=== PATIENT | male | born 1995 | race Caucasian/White ===

== ENCOUNTER 2019-02-17 11:45 | Observation (INO) | payer BC ==
[2019-02-17] MEDS ORDERED: Sodium Chloride 0.9% 1,000 ML IV ONE (12:03)
[2019-02-17 13:02] LABS: CHLORIDE,CL 95 mmol/L (98-115); SODIUM,NA 135 mmol/L (136-145)
--- NOTE | 2019-02-17 13:08 | CR ---
[id number] RAD/RAD Chest PA And Lateral EXAM: FRONTAL AND LATERAL CHEST INDICATION: Fever and shortness of breath. COMPARISON: None. DISCUSSION: Mild hypoinflation. Mild bilateral interstitial opacities are suggestive of atypical infection. Consider follow-up imaging in 4-6 weeks to further exclude other underlying pathology. Normal heart size. IMPRESSION: 1. Mild diffuse bilateral interstitial infiltrates Triston Grajeda MD 02/17/19 [id number] Thank you for allowing us to participate in the care of your patient.
[2019-02-17] MEDS: Acetaminophen 325 MG Tab PO PRN (14:01)
[2019-02-17] MEDS: Sodium Chloride 0.9% 1,000 ML IV SCH (14:01)
[2019-02-17] MEDS ORDERED: Iopamidol 755 Mg/ML 100 ML Bottle IV ONE (14:06)
[2019-02-17] MEDS ORDERED: Sodium Chloride 0.9% 50 ML IV SCH (14:15)
--- NOTE | 2019-02-17 15:35 | CT ---
[id number] CT/CT Chest W IV Exam: CT Chest W IV Clinical Data: BILATERAL INTERSTITIAL INFILTRATES INHALATION EXPOSURE COMPARISON: CORRELATION IS MADE WITH TODAY'S PLAIN FILM FINDINGS: Interstitial infiltrates are seen bilaterally mostly at the lung bases There is no mediastinal mass or adenopathy The great vessels are intact There are subcentimeter lymph nodes in the mediastinum IMPRESSION: DOCUMENTATION OF ABNORMAL INTERSTITIAL PATTERN Lei Angel MD 02/17/19 1536 Thank you for allowing us to participate in the care of your patient.
[2019-02-17] MEDS ORDERED: cefTRIAXone 1 GM Vial IVPUSH SCH (17:00)
[2019-02-17] MEDS ORDERED: Azithromycin 500 MG in Sodium Chloride 0.9% 250 ML IV SCH (18:00)
[2019-02-17] MEDS: B.Bifidum/B.Longum/L.Acidophilus/L.Rhamnosus (Probiotic) Cap PO SCH (20:44)
[2019-02-17] MEDS: Vancomycin 1 GM SDV PO SCH (21:26)
[2019-02-18] MEDS: Sodium Chloride 0.9% 1,000 ML IV SCH ×2 (00:34→08:52)
[2019-02-18] MEDS: Vancomycin 1 GM SDV PO SCH ×2 (03:07→09:51)
[2019-02-18] MEDS: Acetaminophen 325 MG Tab PO PRN (06:32)
[2019-02-18] MEDS: B.Bifidum/B.Longum/L.Acidophilus/L.Rhamnosus (Probiotic) Cap PO SCH (09:50)
--- NOTE | 2019-02-18 13:55 | DISCH ---
DISCHARGE DIAGNOSIS: 1. Clostridium difficile infection. 2. Acute febrile illness/dehydration/interstitial infiltrate. BRIEF HISTORY AND HOSPITAL SUMMARY: This is a 23-year-old male patient who was initially seen in the outpatient setting at the [facility] with complaints of breathing problems. He did have a followup later in the week with an exacerbation of the symptoms. Due to the progressive worsening of his situation, he was admitted to the hospital to observation. His initial symptoms started with feeling ill a week prior to his clinical visit. He noted nausea, vomiting, and shortness of breath. He does admit to vaping THC/CBD. He was vaping several times a day and smoking approximately one-half package of cigarettes. He has not vaped or smoked since last Wednesday. He has no prior history of any lung disease. He states that he was not in contact with anyone that was ill or sick. Over the course of his hospitalization, he was initially treated with IV fluids, 1 g of Rocephin and 500 mg of azithromycin due to his x- ray report/CT report of interstitial infiltrates. A stool specimen had also been obtained noting the positive C diff. He denies any previous antibiotics. 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 With the positive C. Diff the Rocephin was discontinued and he was started on vancomycin 125 mg orally q.i.d. He was also started on a probiotic. On the morning of discharge, he reports that he feels 75% improved. His respiratory status has improved significantly and he notes that he is coughing less. He has had no significant fever. He has had a low- grade fever during his hospitalization. He has refused Tylenol. He has been placed on a clear liquid diet. He is tolerating the clear liquids without nausea or vomiting. He reports this morning at approximately 10 a.m. that his last loose stool was at midnight last night. The patient requests discharge from hospital and would like to follow up with outpatient medications. No complications noted. MEDICATIONS: The patient will be sent home on vancomycin 125 mg q.i.d. for an additional 9 days. He will continue his probiotics. His azithromycin will be discontinued. He may use the antiemetic as needed and Tylenol as needed. LABS AND DIAGNOSTICS: A chest x-ray and CT scan were obtained noting interstitial infiltrates. Lab work was obtained during the course of his hospitalization. Noted an initial white count of 12.38. White count on day of discharge is 10.18. He does have a slight left shift with neutrophils at 88.4 yesterday and 84.5 today. A UA was also obtained on admission noting moderate amount of mucus, wbc's 5-10. Blood cultures were obtained. Those results are pending. The patient was unable to produce an adequate sputum culture for evaluation. Stool culture positive for C. diff. No consults were obtained. PHYSICAL EXAMINATION: VITAL SIGNS: Today, 110/62, 98, 78, and 20. He has had a low-grade temp of 99.7 to 100. Oxygen saturation was 97% on 2 L of oxygen. After removal of oxygen, he was at 93% on room air. HEENT: Normal. RESPIRATORY: Lung sounds are clear to auscultation throughout all lung borden. He does have an intermittent congested cough. No respiratory distress. No wheezing, rhonchi, or rales. CARDIOVASCULAR: Heart rate and rhythm are regular. S1, S2 without murmur. ABDOMEN: Soft, nontender, bowel sounds are present. He has no guarding or rebound tenderness to palpation. MUSCULOSKELETAL: No lower extremity edema. No changes of range of motion. SKIN: Warm and dry to touch. DISPOSITION: The patient will be discharged to his home setting. He will continue the vancomycin 125 mg QID oral for 9 days. He is advised to continue the probiotics. His azithromycin will be discontinued. He will continue to refrain from vaping and smoking. He was advised to use his incentive spirometer hourly while awake. Tylenol for comfort or low-grade fever. OTC cough medication PRN. He will be following up in the clinical setting for reevaluation on Wednesday. Dr. Lianet Patrick was consulted in this case and agrees with the plan of care/DC of the Zithromax. /[id number]/MODL MTDD
== END 2019-02-18 12:40 | disposition home or self-care (01) ==
LOC: KA.MS 11:45
PROVIDERS: ADMIT Nurse Practitioner Family; ATTEND Family Medicine
DX: A04.72 Enterocolitis due to Clostridium difficile, not specified as recurrent (principal); R91.8 Other nonspecific abnormal finding of lung field; R50.9 Fever, unspecified; E86.0 Dehydration; F41.9 Anxiety disorder, unspecified; F32.9 Major depressive disorder, single episode, unspecified; F17.210 Nicotine dependence, cigarettes, uncomplicated; F17.290 Nicotine dependence, other tobacco product, uncomplicated; Z79.899 Other long term (current) drug therapy; Z88.1 Allergy status to other antibiotic agents
CPT/HCPCS: 36415; 71046; 71260; 80053; 81001; 85025; 87040; 87045; 87046; 87324; 87449; 87899; 96361; 96365; 96375; A9270-GY; G0378; G0379; J0456; J0696; J3370; J7030; J7050; Q9967

== ENCOUNTER 2019-05-26 21:38 | Emergency (ER) | payer BC, OTHER ==
[2019-05-26] MEDS ORDERED: Ketorolac 30 MG/ML SDV IVPUSH ONE (21:59)
[2019-05-26] MEDS ORDERED: Sodium Chloride 0.9% 1,000 ML IV ONE (21:59)
[2019-05-26] MEDS ORDERED: diphenhydrAMINE 50 MG/ML SDV IVPUSH ONE (21:59)
[2019-05-26] MEDS ORDERED: Ondansetron 4 MG/2 ML SDV IVPUSH ONE (21:59)
--- NOTE | 2019-05-26 22:07 | EDM.PDOC ---
ED HPI GENERAL MEDICAL PROBLEM - General Chief Complaint: General Stated Complaint: VERY BAD HEADACHE Time Seen by Provider: 05/26/19 21:46 Source of Information: Reports: Patient, Family (mom) History Limitations: Reports: No Limitations - History of Present Illness INITIAL COMMENTS - FREE TEXT/NARRATIVE: Patient presents with bad headache that started 7 days ago. No injury or trauma. He denies visual change, balance problem, vomiting, ear pain or ringing , hearing loss. Yesterday he went to [facility] in [place] and was given a toradol injection which took the pain away for about 16 hours but now it is back again about as strong. He says it was 10 in [place] and was 10 again this evening but now sitting in the dimly lit ER room it is about 7. He denies any migraine diagnosis or history of bad headaches. Head Pain Score (Numeric/FACES): 7 - Related Data Allergies Allergy/AdvReac Type Severity Reaction Status Date / Time amoxicillin Allergy Rash Verified 05/26/19 21:53 Home Meds: Home Meds ondansetron HCL [Ondansetron] 4 mg PO Q6H PRN 02/17/19 [History] Acetaminophen [Tylenol] 650 mg PO Q4H PRN tablet 02/18/19 [Rx] Vancomycin 125 mg PO Q6H 9 Days #36 sdv 02/18/19 [Rx] Past Medical History Psychiatric History: Reports: ADD, ADHD, Anxiety, Depression, Learning Disability, Psych Hospitalization(s), Suicide Attempt - Infectious Disease History Infectious Disease History: Reports: Chicken Pox, Shingles Social & Family History - Family History Family Medical History: Noncontributory - Caffeine Use Caffeine Use: Reports: Soda ED ROS GENERAL - Review of Systems Review Of Systems: See Below Constitutional: Denies: Fever, Chills, Malaise, Weakness HEENT: Denies: Dental Pain, Ear Discharge, Ear Pain, Eye Pain, Throat Pain, Vision Change Respiratory: Denies: Shortness of Breath, Cough Cardiovascular: Denies: Chest Pain, Lightheadedness, Syncope GI/Abdominal: Denies: Abdominal Pain, Diarrhea, Decreased Appetite, Vomiting : Reports: No Symptoms Musculoskeletal: Denies: Neck Pain, Shoulder Pain, Arm Pain, Back Pain Skin: Denies: Cyanosis, Jaundice, Mottled, Pallor, Diaphoresis Neurological: Reports: Headache. Denies: Confusion, Dizziness, Numbness, Seizure, Syncope, Tingling, Tremors, Trouble Speaking, Difficulty Walking Psychiatric: Denies: Agitation, Anxiety, Confusion ED EXAM, GENERAL - Physical Exam Exam: See Below Exam Limited By: No Limitations General Appearance: Alert, WD/WN, No Apparent Distress Eye Exam: Bilateral Eye: EOMI (full visual bodren intact), Normal Inspection, PERRL Ears: Normal External Exam, Normal Canal, Hearing Grossly Normal, Normal TMs Nose: Normal Inspection, No Blood Throat/Mouth: Normal Inspection, Normal Lips, Normal Oropharynx, Normal Voice, No Airway Compromise Head: Atraumatic, Normocephalic Neck: Normal Inspection, Supple, Non-Tender, Full Range of Motion Respiratory/Chest: No Respiratory Distress, Lungs Clear, Normal Breath Sounds, No Accessory Muscle Use Cardiovascular: Regular Rate, Rhythm, No Murmur GI/Abdominal: Soft, Non-Tender, No Organomegaly Back Exam: Normal Inspection, Full Range of Motion Extremities: Normal Inspection, Normal Range of Motion Neurological: Alert, Oriented, CN II-XII Intact, Normal Cognition, No Motor/ Sensory Deficits Psychiatric: Normal Affect, Normal Mood Skin Exam: Warm, Dry, Intact, Normal Color, No Rash Course - Orders/Labs/Meds Orders: Active Orders 24 hr Category Date Time Status Sodium Chloride 0.9% @ 999 MLS/HR (1000ml) Med 05/26/19 21:59 Ordered Sodium Chloride 0.9% [Normal Saline] 1,000 ml IV .BOLUS Medication Orders Sodium Chloride (Normal Saline) 1,000 mls @ 999 mls/hr IV .BOLUS ONE Stop: 05/26/19 22:59 Meds: Medications Generic Name Dose Route Start Last Admin Trade Name Freq PRN Reason Stop Dose Admin Sodium Chloride 1,000 mls @ 999 mls/hr 05/26/19 21:59 Normal Saline IV 05/26/19 22:59 .BOLUS ONE Discontinued Medications Generic Name Dose Route Start Last Admin Trade Name Freq PRN Reason Stop Dose Admin Diphenhydramine HCl 50 mg 05/26/19 21:59 Benadryl IVPUSH 05/26/19 22:00 ONETIME ONE Ketorolac Tromethamine 30 mg 05/26/19 21:59 Toradol IVPUSH 05/26/19 22:00 ONETIME ONE Ondansetron HCl 4 mg 05/26/19 21:59 Zofran IVPUSH 05/26/19 22:00 ONETIME ONE - Re-Assessments/Exams Free Text/Narrative Re-Assessment/Exam: 05/26/19 22:09 I discussed with patient and his mother that sometimes with a first bad headache we will do a head CT to rule out bleed or other intracranial pathology. However our CT scanner is not working this weekend and not available. We would need to transfer to another hospital for CT scan if needed. With the chronicity of this headache lasting a week and no neurological changes and not worsening progressively we can try migraine treatment protocol now. They would like to try that rather than go for CT now. 05/26/19 23:17 Following migraine cocktail pain is completely gone and patient feels ready to go home and sleep. I discussed treatment plan with him and his mother and he is discharged to home in stable condition. Departure - Departure Time of Disposition: 23:14 Disposition: Home, Self-Care 01 Condition: Good Clinical Impression: Headache Qualifiers: Headache type: unspecified Headache chronicity pattern: acute headache Intractability: intractable Qualified Code(s): R51 - Headache - Discharge Information Instructions: Migraine Headache, [id number], General Headache Without Cause, [id number] Referrals: Jeanette Barragan, [employer] [Primary Care Provider] - Additional Instructions: 1. Drink 8 cups of water daily. Water is known to decrease and help prevent headaches. 2. Try to sleep 10-12 hours tonight. 3. No driving for at least 8 hours. 4. Follow up with your PCP if headache recurs. 5. If headache returns and is more severe or has other neurological symptoms go to ER for evaluation with CT. - My Orders Last 24 Hours: My Active Orders 05/26/19 21:59 Sodium Chloride 0.9% @ 999 MLS/HR (1000ml) Sodium Chloride 0.9% [Normal Saline] 1,000 ml IV .BOLUS - Assessment/Plan Last 24 Hours: My Active Orders 05/26/19 21:59 Sodium Chloride 0.9% @ 999 MLS/HR (1000ml) Sodium Chloride 0.9% [Normal Saline] 1,000 ml IV .BOLUS
== END 2019-05-26 23:25 | disposition home or self-care (01) ==
LOC: KA.ED 21:38
DX: R51 Headache (principal); Z88.1 Allergy status to other antibiotic agents
CPT/HCPCS: 96361; 96374; 96375; 99283-25; J1200; J1885; J2405; J7030